=== PATIENT | male | born 1965 | race Caucasian/White ===

== ENCOUNTER 2017-01-25 02:27 | Emergency (ER) | payer BC ==
[~2017-01-25] VITALS: Ht 182.9 cm; Wt 80.3 kg
[2017-01-25] MEDS ORDERED: BP PILL (03:17)
--- NOTE | 2017-01-25 03:18 | NUR ---
Pt FERNANDO FOSTER, reports pt from [facility] (started Thursday), has hypertension, not well controlled. Pt denies CP, SOB, dizziness, n/v, no other complaints, no distress noted.
[2017-01-25] MEDS ORDERED: METOCLOPRAMIDE HCL 10 MG/2 ML VIAL IV ONE (04:00)
[2017-01-25] MEDS ORDERED: LABETALOL HCL 100 MG/20 ML VIAL IV ONE (04:00)
[2017-01-25] MEDS ORDERED: diphenhydrAMINE 50 MG/1 ML VIAL IV ONE (04:00)
[2017-01-25 04:08] LABS: BASOPHILS # (AUTO) 0.1 K/uL (0.0-8.0); BASOPHILS % (AUTO) 1.5 % (0.0-2.0); EOSINOPHILS # (AUTO) 0.1 K/uL (0.0-0.7); EOSINOPHILS % (AUTO) 1.7 % (0.0-7.0); HEMATOCRIT 41.3 % (40-50); HEMOGLOBIN 13.7 G/DL (14.0-18.0); LYMPHOCYTES % (AUTO) 22.3 % (20.5-51.5); MEAN CORPUSCULAR HEMOGLOBIN 34.7 UUG (27.0-31.0); MEAN CORPUSCULAR HGB CONC 33 g/dL (32.0-37.0); MEAN CORPUSCULAR VOLUME 104.4 FL (82.0-92.0); MONOCYTES # (AUTO) 0.5 K/UL (0.1-1.30); MONOCYTES % (AUTO) 11.1 % (0.0-11.0); NEUTROPHILS % (AUTO) 63.4 % (38.5-71.5); PLATELET COUNT (AUTO) 307 K/UL (150-450); RED BLOOD CELL COUNT(AUTO) 3.96 MIL/UL (4.7-6.1); WHITE BLOOD COUNT (AUTO) 4.7 K/UL (4.0-11.2)
[2017-01-25] MEDS ORDERED: diphenhydrAMINE 50 MG/1 ML VIAL ONE (04:17)
[2017-01-25] MEDS ORDERED: METOCLOPRAMIDE HCL 10 MG/2 ML VIAL ONE (04:17)
[2017-01-25 04:18] LABS: CREATININE 0.7 mg/dL (0.6-1.3); POTASSIUM 3.7 mmol/L (3.5-5.1)
[2017-01-25] MEDS ORDERED: LABETALOL HCL 100 MG/20 ML VIAL ONE (04:18)
[2017-01-25 04:25] LABS: BILIRUBIN,DIRECT 0.1 mg/dL (0.0-0.2); BILIRUBIN,TOTAL 0.2 mg/dL (0.2-1.0); TOTAL PROTEIN, SERUM 6.9 g/dL (6.4-8.2)
[2017-01-25] MEDS ORDERED: HYDROMORPHONE 1 MG/1 ML DISP.SYRIN IV PRN (07:30)
[2017-01-25] MEDS ORDERED: MAGNESIUM HYDROXIDE 30 ML LIQUID UDC PO PRN (07:30)
[2017-01-25] MEDS ORDERED: ACETAMINOPHEN 325 MG TABLET PO PRN (07:30)
[2017-01-25] MEDS ORDERED: HYDROCHLOROTHIAZIDE 25 MG TABLET PO ONE (07:30)
[2017-01-25] MEDS ORDERED: ONDANSETRON 4 MG/2 ML VIAL IV PRN (07:30)
[2017-01-25] MEDS ORDERED: CLONIDINE HCL 0.1 MG TABLET PO PRN (07:30)
--- NOTE | 2017-01-25 08:35 | NUR ---
pt alert, oriented x 4 refused to be admitted signed AMA after talking to er MD left er via self alert, oriented x4.
[2017-01-25 08:47] VITALS: BP 140/90
[2017-01-25] MEDS ORDERED: AMLODIPINE 5 MG TABLET PO SCH (09:00)
[2017-01-26] MEDS ORDERED: PANTOPRAZOLE SODIUM 40 MG TABLET.DR PO SCH (07:00)
== END 2017-01-25 08:48 | disposition left against medical advice (07) ==
LOC: ER 02:27
DX: S09.90XA Unspecified injury of head, initial encounter (principal); F10.239 Alcohol dependence with withdrawal, unspecified; I10 Essential (primary) hypertension; G47.419 Narcolepsy without cataplexy; F17.200 Nicotine dependence, unspecified, uncomplicated; R91.8 Other nonspecific abnormal finding of lung field; X58.XXXA Exposure to other specified factors, initial encounter; Y93.89 Activity, other specified; Y92.89 Other specified places as the place of occurrence of the external cause; Y99.8 Other external cause status
CPT/HCPCS: 36415; 70030-TC; 70450; 71010; 85025; 85730; 93005; A4663; J1200; J2765; J3490

== ENCOUNTER 2017-10-29 06:31 | Inpatient (IN) | payer BC ==
[~2017-10-29] VITALS: Ht 182.9 cm; Wt 81.2 kg
[~2017-10-29 06:31] MED LIST: BP PILL
[2017-10-29] MEDS ORDERED: SIMV10TA6 PO (06:48)
[2017-10-29] MEDS ORDERED: BP MED PO (06:48)
[2017-10-29] MEDS ORDERED: IV NORMAL SALINE 1000 ML BAG IV ONE ×3 (07:00→08:30)
[2017-10-29] MEDS ORDERED: LORAZEPAM 2 MG/1 ML VIAL IV ONE ×2 (07:00→09:00)
[2017-10-29] MEDS ORDERED: LORAZEPAM 2 MG/1 ML VIAL ONE ×2 (07:05→09:02)
[2017-10-29 07:15] LABS: BASOPHILS # (AUTO) 0.1 K/uL (0.0-8.0); BASOPHILS % (AUTO) 0.7 % (0.0-2.0); HEMATOCRIT 45.2 % (36.7-47.1); HEMOGLOBIN 15.7 g/dL (12.5-16.3); LYMPHOCYTES # (AUTO) 0.4 K/uL (20.0-40.0); LYMPHOCYTES % (AUTO) 2.9 % (20.5-51.5); MEAN CORPUSCULAR HEMOGLOBIN 33.3 uug (23.8-33.4); MEAN CORPUSCULAR HGB CONC 35 g/dL (32.5-36.3); MEAN CORPUSCULAR VOLUME 96.3 fL (73.0-96.2); MONOCYTES # (AUTO) 0.9 K/uL (2.0-10.0); MONOCYTES % (AUTO) 6.6 % (0.0-11.0); NEUTROPHILS % (AUTO) 89.8 % (38.5-71.5); PLATELET COUNT (AUTO) 156 K/uL (152-348); WHITE BLOOD COUNT (AUTO) 14.4 K/uL (3.6-10.2)
--- NOTE | 2017-10-29 07:15 | NUR ---
SHIFT REPORT GIVEN TO TIANA ENGLE USING SBAR .
--- NOTE | 2017-10-29 07:18 | NUR ---
PT RESTING IN BED, DENIES PAIN AT THIS TIME.
[2017-10-29 07:22] LABS: CREATININE 1.3 mg/dL (0.6-1.3)
[2017-10-29 07:23] LABS: POTASSIUM 2.5 mmol/L (3.5-5.1)
[2017-10-29 07:28] LABS: BILIRUBIN,DIRECT 0.5 mg/dL (0.0-0.2); TOTAL PROTEIN, SERUM 8.4 g/dL (6.4-8.2)
[2017-10-29] MEDS ORDERED: MAGNESIUM SULFATE/D5W 100 ML IV SCH (07:30)
[2017-10-29] MEDS ORDERED: POTASSIUM BICARBONATE/CIT AC 25 MEQ TABLET.EFF PO ONE (07:30)
[2017-10-29] MEDS ORDERED: POTASSIUM BICARBONATE/CIT AC 25 MEQ TABLET.EFF ONE (07:34)
[2017-10-29] MEDS ORDERED: POTASSIUM CHLORIDE 100 ML ONE ×2 (07:39→08:32)
[2017-10-29] MEDS: POTASSIUM CHLORIDE 50 ML IV SCH ×4 (07:42→09:31)
[2017-10-29] MEDS ORDERED: MAG HYDROX/AL HYDROX/SIMETH 30 ML LIQUID UDC ONE (07:58)
[2017-10-29] MEDS ORDERED: LIDOCAINE VISCUS 2% 15 ML UDC ONE (07:58)
[2017-10-29] MEDS ORDERED: PANTOPRAZOLE SODIUM 40 MG VIAL ONE (07:58)
[2017-10-29] MEDS ORDERED: MAGNESIUM SULFATE 1 GM/2 ML VIAL ONE (07:58)
[2017-10-29] MEDS ORDERED: MAG HYDROX/AL HYDROX/SIMETH 30 ML LIQUID UDC PO ONE (08:00)
[2017-10-29] MEDS ORDERED: LIDOCAINE VISCUS 2% 15 ML UDC MM ONE (08:00)
[2017-10-29] MEDS ORDERED: PANTOPRAZOLE SODIUM 40 MG VIAL IV ONE (08:00)
[2017-10-29] MEDS ORDERED: ONDANSETRON 4 MG/2 ML VIAL IV ONE (08:15)
[2017-10-29] MEDS ORDERED: THIAMINE HCL 200 MG/2 ML VIAL IV ONE (08:15)
[2017-10-29] MEDS ORDERED: FOLIC ACID 5 MG/ML VIAL IV ONE ×2 (08:15→08:24)
--- NOTE | 2017-10-29 08:15 | NUR ---
PT THREW UP MOST OF PO POTASSIUM. MADE AWARE. MED ORDERED.
[2017-10-29] MEDS ORDERED: ONDANSETRON 4 MG/2 ML VIAL ONE (08:16)
[2017-10-29] MEDS ORDERED: THIAMINE HCL 200 MG/2 ML VIAL ONE (08:24)
--- NOTE | 2017-10-29 10:00 | NUR ---
Pt. in from [facility] admitted as inpatient at this time. IV line to LAC infusing with one full bag of saline and 2 bags of potassium hanging. IV patent flushing well. Pt. AAOX4. vital signs stable SBP 142/89, HR 79, 99% SAT on room air. Admitting physician notified of admission awaiting orders.
[2017-10-29 10:43] VITALS: BP 142/89
[2017-10-29] MEDS ORDERED: ZOLPIDEM 5 MG TABLET PO PRN (12:00)
[2017-10-29] MEDS ORDERED: POTASSIUM CHLORIDE 40 MEQ in IV NS 1000 ML 1,000 ML IV PRN (12:00)
[2017-10-29] MEDS ORDERED: ONDANSETRON 4 MG/2 ML VIAL IV PRN (12:00)
[2017-10-29] MEDS ORDERED: MAGNESIUM HYDROXIDE 30 ML LIQUID UDC PO PRN (12:00)
[2017-10-29] MEDS ORDERED: Z GUARD REMEDY PASTE 57 GM TUBE TOP PRN (12:00)
[2017-10-29] MEDS ORDERED: ACETAMINOPHEN 325 MG TABLET PO PRN (12:00)
[2017-10-29] MEDS: LORAZEPAM 2 MG/1 ML VIAL IV PRN ×3 (12:32→20:02)
--- NOTE | 2017-10-29 13:32 | NUR ---
patient seen by physical therapist, pt. tolerated well ambulation.
[2017-10-29 15:07] VITALS: BP 139/91
--- NOTE | 2017-10-29 19:30 | NUR ---
ROUNDS MADE PATIENT IN BED REMOVED HEART MONITOR AND REMOVED IV-HEPLOCK ,ADVISED PATIENT HIS IN THE HOSPITAL AND HE NEEDS THE HEPLOCK IV ACCESS FOR HIS MAINTENANCE FLUIDS AND HEART MONITOR . REINSERTED HEPLOCK AND PLACED NO 20 TO THE LEFT AC .CALLIGHT PALCED WITH IN REACH AND ADVISED TO CALL FOR HELP ,PATIENT VERBALZED HIS GOING HOME INFIORMED ITS LATE AT NIGHT AND HE CAN DECIDE ON IT IN THE MORNING AND TO STAY HERE FOR TONIGHT .
[2017-10-29 19:49] VITALS: BP 140/91
--- NOTE | 2017-10-29 20:02 | NUR ---
GIVEN ATIVAN PATIENT IN ROOM VERY ANXIOUS,AGITATED AND PUTTING HIS CLOTHES ON .VERBALIZING HIS GOING HOME AND WILL SIGN AMA.
--- NOTE | 2017-10-29 21:20 | NUR ---
PATIENT CAME TO THE NURSING STATION ALL DRESS SAYING HIS GOING HOME AND HIS NOT STAYING HER FOR ANOTHER DAY .REMOVED HEART MONITOR .PATIENT AAOX4. NO RESPIRATORY DISTRESS NOTED BREATHING EVEN AND UNLABORED . PATIENT SIGNED AMA PAPERS . ADVISED TO STAY IM CALLING HIS DOCTOR BUT HE SAID HIS NOT WAITING AND WALKING TOWARDS THE ELEVATOR DOCTOR BAILEE WAS CALLED AND AWAITING CALL BACK . NURSE IN CHARGE EPI MADE AREA .PATENT WENT HOME WITH BELONGINGS .
--- NOTE | 2017-10-29 21:30 | NUR ---
: Kassi AWARE PATIENT SIGN AMA AND WENT HOME .
[2017-10-30] MEDS ORDERED: FOLIC ACID 1 MG TABLET PO SCH (09:00)
[2017-10-30] MEDS ORDERED: MULTIVITAMINS,THERAPEUTIC TABLET PO SCH (09:00)
[2017-10-30] MEDS ORDERED: THIAMINE HCL 100 MG TABLET PO SCH (09:00)
== END 2017-10-29 21:24 | disposition left against medical advice (07) | DRG 894 ==
LOC: ER 06:34 → DOU 09:09 → TELE-TD 09:31
PROVIDERS: ADMIT Nurse Practitioner Acute Care; ATTEND Nurse Practitioner Acute Care
DX: F10.239 Alcohol dependence with withdrawal, unspecified (principal); E87.8 Other disorders of electrolyte and fluid balance, not elsewhere classified; E87.6 Hypokalemia; E83.42 Hypomagnesemia; D72.829 Elevated white blood cell count, unspecified; I10 Essential (primary) hypertension; Y90.9 Presence of alcohol in blood, level not specified
CPT/HCPCS: 70030-TC; 71045; 83735; 85025; 85730; 93005; 93307; C9113; J2060; J2405; J3411; J3475; J3480; J3490; J7030